=== PATIENT | male | born 1945 | race Native Hawaiian/Other Pacific Islander ===

== ENCOUNTER 2016-09-08 12:36 | Outpatient (CLI) | payer OTHER, MEDICARE ==
[~2016-09-08 12:36] MED LIST: AMIT25TA22 PO; CORGARD40 MG PO; FURO20TA67 PO; INVOKANA300 MG OR; LACTSYP31 PO; LISI20TA11 PO; METF100038 OR; OMEPRAZOLE20 M2 OR; SPIRONOLACT25 MG PO
[2016-09-08 13:27] LABS: PLATELET COUNT 120 K/uL (142-355)
[2016-09-08 13:31] LABS: POTASSIUM 3.9 mmol/L (3.6-5.2)
== END 2016-09-08 19:32 | disposition home or self-care (01) ==
LOC: LABW 12:36
DX: I85.00 Esophageal varices without bleeding (principal)
CPT/HCPCS: 36415; 80053; 82140; 85027; 85610

== ENCOUNTER 2016-09-23 12:41 | Outpatient (CLI) | payer OTHER, MEDICARE ==
[2016-09-23 13:02] LABS: POTASSIUM 4.4 mmol/L (3.6-5.2)
== END 2016-09-23 22:06 | disposition home or self-care (01) ==
LOC: LABW 12:41
PROVIDERS: Internal Medicine Gastroenterology
DX: K70.30 Alcoholic cirrhosis of liver without ascites (principal)
CPT/HCPCS: 36415; 80048

== ENCOUNTER 2016-09-30 10:03 | Outpatient (CLI) | payer OTHER, MEDICARE ==
[2016-09-30 10:33] LABS: PLATELET COUNT 94 K/uL (142-355)
[2016-09-30 12:21] LABS: POTASSIUM 4.1 mmol/L (3.6-5.2)
== END 2016-09-30 19:02 | disposition home or self-care (01) ==
LOC: LABW 10:03
PROVIDERS: Internal Medicine
DX: K74.69 Other cirrhosis of liver (principal); I10 Essential (primary) hypertension; E78.4 Other hyperlipidemia; E55.9 Vitamin D deficiency, unspecified; E11.9 Type 2 diabetes mellitus without complications; R79.89 Other specified abnormal findings of blood chemistry
CPT/HCPCS: 36415; 80053; 80061; 82043; 82570; 82607; 82652; 82728; 82746; 83036; 83540; 83550; 83970; 84100; 84403; 84443; 85027

== ENCOUNTER 2016-12-13 15:14 | Outpatient (CLI) | payer OTHER, MEDICARE ==
[2016-12-13 15:31] LABS: PLATELET COUNT 78 K/uL (142-355)
[2016-12-13 15:44] LABS: POTASSIUM 4.9 mmol/L (3.6-5.2)
== END 2016-12-13 19:32 | disposition home or self-care (01) ==
LOC: LABW 15:14
PROVIDERS: Internal Medicine Gastroenterology
DX: K70.30 Alcoholic cirrhosis of liver without ascites (principal)
CPT/HCPCS: 36415; 80053; 85027; 85610

== ENCOUNTER 2016-12-22 11:32 | Outpatient (CLI) | payer OTHER, MEDICARE ==
[2016-12-22 11:58] LABS: PLATELET COUNT 65 K/uL (142-355)
[2016-12-22 12:48] LABS: POTASSIUM 4.4 mmol/L (3.6-5.2)
== END 2016-12-22 19:15 | disposition home or self-care (01) ==
LOC: LABW 11:32
PROVIDERS: Internal Medicine Hematology & Oncology
DX: K74.60 Unspecified cirrhosis of liver (principal)
CPT/HCPCS: 36415; 80053; 82105; 82728; 83540; 83550; 85027

== ENCOUNTER 2017-10-14 12:08 | Outpatient (CLI) | payer OTHER, MEDICARE ==
[2017-10-14 13:35] LABS: PLATELET COUNT 131 K/uL (142-355)
== END 2017-10-14 21:59 | disposition home or self-care (01) ==
LOC: LABW 12:08
PROVIDERS: Internal Medicine Hematology & Oncology
DX: E86.0 Dehydration (principal); C01 Malignant neoplasm of base of tongue
CPT/HCPCS: 36415; 85027

== ENCOUNTER 2017-12-08 10:01 | Outpatient (CLI) | payer OTHER, MEDICARE ==
[2017-12-08 10:25] LABS: PLATELET COUNT 98 K/uL (142-355)
[2017-12-08 11:28] LABS: POTASSIUM 4.6 mmol/L (3.6-5.2)
== END 2017-12-08 22:05 | disposition home or self-care (01) ==
LOC: LABW 10:01
PROVIDERS: Internal Medicine
DX: E11.9 Type 2 diabetes mellitus without complications (principal); E29.1 Testicular hypofunction; I10 Essential (primary) hypertension; K70.30 Alcoholic cirrhosis of liver without ascites; Z12.5 Encounter for screening for malignant neoplasm of prostate; D64.89 Other specified anemias
CPT/HCPCS: 36415; 80053; 80061; 82043; 82140; 82306; 82570; 82607; 82728; 83036; 83540; 83550; 84154; 84403; 84443; 85027; 85044; 85610

== ENCOUNTER 2017-12-23 09:43 | Outpatient (CLI) | payer OTHER, MEDICARE ==
[2017-12-23 10:43] LABS: PLATELET COUNT 73 K/uL (142-355)
[2017-12-23 10:52] LABS: POTASSIUM 5.2 mmol/L (3.6-5.2)
== END 2017-12-23 22:14 | disposition home or self-care (01) ==
LOC: LABW 09:43
PROVIDERS: Internal Medicine Gastroenterology
DX: K70.31 Alcoholic cirrhosis of liver with ascites (principal); Z51.81 Encounter for therapeutic drug level monitoring
CPT/HCPCS: 36415; 80053; 82105; 85027; 85610

== ENCOUNTER 2017-12-28 11:50 | Outpatient (CLI) | payer OTHER, MEDICARE | END 2017-12-28 21:30 | disposition home or self-care (01) | LOC: LAB 11:50 | DX: D50.0 Iron deficiency anemia secondary to blood loss (chronic) (principal) | CPT/HCPCS: 82272 ==

== ENCOUNTER 2018-01-31 14:53 | Outpatient (CLI) | payer OTHER, MEDICARE ==
[2018-01-31 15:24] LABS: POTASSIUM 4.8 mmol/L (3.6-5.2)
[2018-01-31 15:36] LABS: PLATELET COUNT 69 K/uL (142-355)
== END 2018-01-31 22:51 | disposition home or self-care (01) ==
LOC: LABW 14:53
PROVIDERS: Internal Medicine Hematology & Oncology
DX: C01 Malignant neoplasm of base of tongue (principal)
CPT/HCPCS: 36415; 80053; 85027

== ENCOUNTER 2018-03-02 12:28 | Outpatient (CLI) | payer OTHER, MEDICARE | END 2018-03-02 21:21 | disposition home or self-care (01) | LOC: LABW 12:28 | DX: E03.8 Other specified hypothyroidism (principal) | CPT/HCPCS: 36415; 84443 ==

== ENCOUNTER 2018-03-07 14:21 | Outpatient (CLI) | payer OTHER, MEDICARE ==
[2018-03-07 14:51] LABS: PLATELET COUNT 82 K/uL (142-355)
[2018-03-07 15:03] LABS: POTASSIUM 5.4 mmol/L (3.6-5.2)
== END 2018-03-07 23:51 | disposition home or self-care (01) ==
LOC: LABW 14:21
PROVIDERS: Internal Medicine
DX: E11.9 Type 2 diabetes mellitus without complications (principal); E29.1 Testicular hypofunction; I10 Essential (primary) hypertension; K70.30 Alcoholic cirrhosis of liver without ascites; D75.89 Other specified diseases of blood and blood-forming organs; E53.8 Deficiency of other specified B group vitamins
CPT/HCPCS: 36415; 80053; 82043; 82570; 82607; 82746; 84402; 84403; 85027; 85610

== ENCOUNTER 2018-04-17 14:33 | Outpatient (CLI) | payer OTHER, MEDICARE ==
[2018-04-17 15:22] LABS: PLATELET COUNT 63 K/uL (142-355)
== END 2018-04-17 20:53 | disposition home or self-care (01) ==
LOC: LABW 14:33
PROVIDERS: Internal Medicine
DX: K74.69 Other cirrhosis of liver (principal); D64.9 Anemia, unspecified; E29.1 Testicular hypofunction; E03.9 Hypothyroidism, unspecified; I10 Essential (primary) hypertension; E11.9 Type 2 diabetes mellitus without complications
CPT/HCPCS: 36415; 82140; 83036; 83970; 84153; 84443; 85027

== ENCOUNTER 2018-06-19 10:52 | Outpatient (CLI) | payer OTHER, MEDICARE ==
[2018-06-19 11:15] LABS: PLATELET COUNT 86 K/uL (142-355)
== END 2018-06-19 20:00 | disposition home or self-care (01) ==
LOC: LABW 10:52
PROVIDERS: Internal Medicine
DX: D64.9 Anemia, unspecified (principal); D61.818 Other pancytopenia
CPT/HCPCS: 36415; 85027

== ENCOUNTER 2018-06-28 13:27 | Outpatient (CLI) | payer OTHER, MEDICARE ==
[2018-06-28 13:40] LABS: PLATELET COUNT 88 K/uL (142-355)
== END 2018-06-28 20:34 | disposition home or self-care (01) ==
LOC: LABW 13:27
PROVIDERS: Internal Medicine
DX: D64.9 Anemia, unspecified (principal); D61.818 Other pancytopenia
CPT/HCPCS: 36415; 85027

== ENCOUNTER 2018-07-10 11:28 | Outpatient (CLI) | payer OTHER, MEDICARE ==
[2018-07-10 12:17] LABS: PLATELET COUNT 81 K/uL (142-355)
== END 2018-07-10 19:48 | disposition home or self-care (01) ==
LOC: LABW 11:28
PROVIDERS: Internal Medicine
DX: D64.9 Anemia, unspecified (principal); D61.818 Other pancytopenia
CPT/HCPCS: 36415; 85027

== ENCOUNTER 2018-07-18 11:21 | Outpatient (CLI) | payer OTHER, MEDICARE ==
[2018-07-18 11:57] LABS: PLATELET COUNT 90 K/uL (142-355)
== END 2018-07-18 21:06 | disposition home or self-care (01) ==
LOC: LABW 11:21
PROVIDERS: Internal Medicine
DX: D64.9 Anemia, unspecified (principal); D61.818 Other pancytopenia
CPT/HCPCS: 36415; 85027

== ENCOUNTER 2018-07-31 11:46 | Outpatient (CLI) | payer OTHER, MEDICARE ==
[2018-07-31 12:02] LABS: PLATELET COUNT 106 K/uL (142-355)
== END 2018-07-31 22:49 | disposition home or self-care (01) ==
LOC: LABW 11:46
PROVIDERS: Internal Medicine
DX: D64.9 Anemia, unspecified (principal); D61.818 Other pancytopenia
CPT/HCPCS: 36415; 85027

== ENCOUNTER 2018-08-07 10:40 | Outpatient (CLI) | payer OTHER, MEDICARE ==
[2018-08-07 11:03] LABS: PLATELET COUNT 84 K/uL (142-355)
== END 2018-08-07 19:09 | disposition home or self-care (01) ==
LOC: LABW 10:40
PROVIDERS: Internal Medicine
DX: D64.9 Anemia, unspecified (principal); D61.818 Other pancytopenia
CPT/HCPCS: 36415; 85027

== ENCOUNTER 2018-08-23 11:46 | Outpatient (CLI) | payer OTHER, MEDICARE ==
[2018-08-23 12:43] LABS: PLATELET COUNT 74 K/uL (142-355)
[2018-08-23 13:18] LABS: POTASSIUM 4.7 mmol/L (3.6-5.2)
== END 2018-08-23 21:35 | disposition home or self-care (01) ==
LOC: LABW 11:46
PROVIDERS: Internal Medicine
DX: E03.8 Other specified hypothyroidism (principal); Z79.899 Other long term (current) drug therapy; D64.9 Anemia, unspecified; D61.818 Other pancytopenia
CPT/HCPCS: 36415; 80053; 84439; 84443; 85027

== ENCOUNTER 2018-08-30 11:13 | Outpatient (CLI) | payer OTHER, MEDICARE ==
[2018-08-30 12:40] LABS: PLATELET COUNT 95 K/uL (142-355)
== END 2018-08-30 22:10 | disposition home or self-care (01) ==
LOC: LABW 11:13
PROVIDERS: Internal Medicine
DX: D64.9 Anemia, unspecified (principal); D61.818 Other pancytopenia; R73.9 Hyperglycemia, unspecified
CPT/HCPCS: 36415; 83036; 85027

== ENCOUNTER 2018-09-06 13:13 | Outpatient (CLI) | payer OTHER, MEDICARE ==
[2018-09-06 13:30] LABS: PLATELET COUNT 83 K/uL (142-355)
== END 2018-09-06 19:36 | disposition home or self-care (01) ==
LOC: LABW 13:13
PROVIDERS: Internal Medicine
DX: D64.9 Anemia, unspecified (principal); D61.818 Other pancytopenia
CPT/HCPCS: 36415; 85027

== ENCOUNTER 2018-09-12 13:04 | Outpatient (CLI) | payer OTHER, MEDICARE ==
[2018-09-12 13:57] LABS: PLATELET COUNT 88 K/uL (142-355)
== END 2018-09-12 21:12 | disposition home or self-care (01) ==
LOC: LABW 13:04
DX: D61.818 Other pancytopenia (principal); E53.8 Deficiency of other specified B group vitamins; D64.9 Anemia, unspecified
CPT/HCPCS: 36415; 82607; 82728; 82746; 83540; 83550; 85027

== ENCOUNTER 2018-10-02 12:59 | Outpatient (CLI) | payer OTHER, MEDICARE ==
[2018-10-02 13:39] LABS: PLATELET COUNT 94 K/uL (142-355)
== END 2018-10-02 19:47 | disposition home or self-care (01) ==
LOC: LABW 12:59
PROVIDERS: Internal Medicine
DX: E29.1 Testicular hypofunction (principal); Z79.899 Other long term (current) drug therapy; D64.9 Anemia, unspecified; D61.818 Other pancytopenia
CPT/HCPCS: 36415; 84402; 84403; 85027

== ENCOUNTER 2018-10-09 12:28 | Outpatient (CLI) | payer OTHER, MEDICARE ==
[2018-10-09 12:39] LABS: PLATELET COUNT 81 K/uL (142-355)
== END 2018-10-09 20:02 | disposition home or self-care (01) ==
LOC: LABW 12:28
PROVIDERS: Internal Medicine
DX: D64.9 Anemia, unspecified (principal); D61.818 Other pancytopenia
CPT/HCPCS: 36415; 85027

== ENCOUNTER 2018-10-16 13:33 | Outpatient (CLI) | payer OTHER, MEDICARE ==
[2018-10-16 13:48] LABS: PLATELET COUNT 91 K/uL (142-355)
== END 2018-10-16 20:05 | disposition home or self-care (01) ==
LOC: LABW 13:33
DX: D64.9 Anemia, unspecified (principal); D61.818 Other pancytopenia
CPT/HCPCS: 36415; 82728; 83540; 83550; 85027

== ENCOUNTER 2018-10-23 13:01 | Outpatient (CLI) | payer OTHER, MEDICARE ==
[2018-10-23 13:23] LABS: PLATELET COUNT 89 K/uL (142-355)
== END 2018-10-23 22:12 | disposition home or self-care (01) ==
LOC: LABW 13:01
PROVIDERS: Internal Medicine
DX: D64.9 Anemia, unspecified (principal); D61.818 Other pancytopenia
CPT/HCPCS: 36415; 85027

== ENCOUNTER 2018-10-26 10:09 | Outpatient (CLI) | payer OTHER, MEDICARE | END 2018-10-26 19:54 | disposition home or self-care (01) | LOC: US 10:09 | DX: I12.9 Hypertensive chronic kidney disease with stage 1 through stage 4 chronic kidney disease, or unspecified chronic kidney disease (principal); D63.1 Anemia in chronic kidney disease; E03.9 Hypothyroidism, unspecified; K74.60 Unspecified cirrhosis of liver; G25.81 Restless legs syndrome; E29.9 Testicular dysfunction, unspecified; E11.22 Type 2 diabetes mellitus with diabetic chronic kidney disease; N18.4 Chronic kidney disease, stage 4 (severe) ==

== ENCOUNTER 2018-11-01 10:44 | Outpatient (CLI) | payer OTHER, MEDICARE ==
[2018-11-01 11:02] LABS: PLATELET COUNT 60 K/uL (142-355)
== END 2018-11-01 19:11 | disposition home or self-care (01) ==
LOC: LABW 10:44
PROVIDERS: Internal Medicine
DX: D64.9 Anemia, unspecified (principal); D61.818 Other pancytopenia; I65.29 Occlusion and stenosis of unspecified carotid artery
CPT/HCPCS: 36415; 80061; 85027

== ENCOUNTER 2018-11-08 12:24 | Outpatient (CLI) | payer OTHER, MEDICARE ==
[2018-11-08 12:45] LABS: PLATELET COUNT 65 K/uL (142-355)
== END 2018-11-08 23:12 | disposition home or self-care (01) ==
LOC: LABW 12:24
PROVIDERS: Internal Medicine
DX: D64.9 Anemia, unspecified (principal); D61.818 Other pancytopenia
CPT/HCPCS: 36415; 85027

== ENCOUNTER 2018-11-14 12:35 | Outpatient (CLI) | payer OTHER, MEDICARE ==
[2018-11-14 12:43] LABS: PLATELET COUNT 67 K/uL (142-355)
== END 2018-11-14 21:09 | disposition home or self-care (01) ==
LOC: LABW 12:35
PROVIDERS: Internal Medicine
DX: D64.9 Anemia, unspecified (principal); D61.818 Other pancytopenia
CPT/HCPCS: 36415; 85027

== ENCOUNTER 2018-11-21 12:19 | Outpatient (CLI) | payer OTHER, MEDICARE ==
[2018-11-21 12:49] LABS: PLATELET COUNT 72 K/uL (142-355)
== END 2018-11-21 21:08 | disposition home or self-care (01) ==
LOC: LABW 12:19
PROVIDERS: Internal Medicine
DX: D64.9 Anemia, unspecified (principal); D61.818 Other pancytopenia
CPT/HCPCS: 36415; 85027

== ENCOUNTER 2018-11-28 12:21 | Outpatient (CLI) | payer OTHER, MEDICARE ==
[2018-11-28 13:14] LABS: PLATELET COUNT 96 K/uL (142-355)
== END 2018-11-28 23:43 | disposition home or self-care (01) ==
LOC: LABW 12:21
PROVIDERS: Internal Medicine
DX: D64.89 Other specified anemias (principal); D61.818 Other pancytopenia
CPT/HCPCS: 36415; 85027

== ENCOUNTER 2018-12-05 11:47 | Outpatient (CLI) | payer OTHER, MEDICARE ==
[2018-12-05 12:02] LABS: PLATELET COUNT 91 K/uL (142-355)
== END 2018-12-05 22:48 | disposition home or self-care (01) ==
LOC: LABW 11:47
PROVIDERS: Internal Medicine
DX: D64.89 Other specified anemias (principal); D61.818 Other pancytopenia
CPT/HCPCS: 36415; 85027

== ENCOUNTER 2018-12-12 12:13 | Outpatient (CLI) | payer OTHER, MEDICARE ==
[2018-12-12 12:37] LABS: PLATELET COUNT 80 K/uL (142-355)
== END 2018-12-12 20:22 | disposition home or self-care (01) ==
LOC: LABW 12:13
PROVIDERS: Internal Medicine
DX: D64.89 Other specified anemias (principal); D61.818 Other pancytopenia
CPT/HCPCS: 36415; 85027

== ENCOUNTER 2018-12-18 12:00 | Outpatient (CLI) | payer OTHER, MEDICARE ==
[2018-12-18 12:12] LABS: PLATELET COUNT 90 K/uL (142-355)
== END 2018-12-18 19:29 | disposition home or self-care (01) ==
LOC: LABW 12:00
PROVIDERS: Internal Medicine
DX: D64.89 Other specified anemias (principal); D61.818 Other pancytopenia
CPT/HCPCS: 36415; 85027

== ENCOUNTER 2019-01-01 11:34 | Outpatient (CLI) | payer OTHER, MEDICARE ==
[2019-01-01 11:50] LABS: PLATELET COUNT 111 K/uL (142-355)
== END 2019-01-01 22:47 | disposition home or self-care (01) ==
LOC: LABW 11:34
PROVIDERS: Internal Medicine
DX: D64.89 Other specified anemias (principal); D61.818 Other pancytopenia; E03.8 Other specified hypothyroidism
CPT/HCPCS: 36415; 84439; 84443; 85027

== ENCOUNTER 2019-01-09 10:04 | Outpatient (CLI) | payer OTHER, MEDICARE ==
[2019-01-09 10:19] LABS: PLATELET COUNT 90 K/uL (142-355)
[2019-01-09 10:35] LABS: POTASSIUM 4.5 mmol/L (3.6-5.2)
== END 2019-01-09 19:20 | disposition home or self-care (01) ==
LOC: LABW 10:04
PROVIDERS: Internal Medicine Gastroenterology
DX: D61.818 Other pancytopenia (principal); K70.31 Alcoholic cirrhosis of liver with ascites
CPT/HCPCS: 36415; 80053; 82105; 85027; 85610

== ENCOUNTER 2019-01-16 11:07 | Outpatient (CLI) | payer OTHER, MEDICARE ==
[2019-01-16 11:34] LABS: PLATELET COUNT 76 K/uL (142-355)
== END 2019-01-16 20:31 | disposition home or self-care (01) ==
LOC: LABW 11:07
DX: D50.8 Other iron deficiency anemias (principal); D61.818 Other pancytopenia
CPT/HCPCS: 36415; 82728; 83540; 83550; 85027

== ENCOUNTER 2019-01-30 11:45 | Outpatient (CLI) | payer OTHER, MEDICARE ==
[2019-01-30 12:07] LABS: PLATELET COUNT 82 K/uL (142-355)
== END 2019-01-30 23:03 | disposition home or self-care (01) ==
LOC: LABW 11:45
PROVIDERS: Internal Medicine
DX: D64.89 Other specified anemias (principal); D61.818 Other pancytopenia
CPT/HCPCS: 36415; 85027

== ENCOUNTER 2019-02-13 12:31 | Outpatient (CLI) | payer OTHER, MEDICARE ==
[2019-02-13 12:51] LABS: PLATELET COUNT 100 K/uL (142-355)
== END 2019-02-13 19:48 | disposition home or self-care (01) ==
LOC: LABW 12:31
PROVIDERS: Internal Medicine
DX: D64.89 Other specified anemias (principal); D61.818 Other pancytopenia
CPT/HCPCS: 36415; 85027

== ENCOUNTER 2019-02-27 13:38 | Outpatient (CLI) | payer OTHER, MEDICARE ==
[2019-02-27 13:48] LABS: PLATELET COUNT 77 K/uL (142-355)
== END 2019-02-27 20:03 | disposition home or self-care (01) ==
LOC: LABW 13:38
PROVIDERS: Internal Medicine
DX: D64.89 Other specified anemias (principal); D61.818 Other pancytopenia
CPT/HCPCS: 36415; 85027

== ENCOUNTER 2019-03-06 10:53 | Outpatient (CLI) | payer OTHER, MEDICARE ==
[2019-03-06 11:08] LABS: PLATELET COUNT 66 K/uL (142-355)
== END 2019-03-06 23:26 | disposition home or self-care (01) ==
LOC: LABW 10:53
PROVIDERS: Internal Medicine Gastroenterology
DX: K70.31 Alcoholic cirrhosis of liver with ascites (principal); D64.89 Other specified anemias; D61.818 Other pancytopenia
CPT/HCPCS: 36415; 82105; 85027

== ENCOUNTER 2019-03-20 11:39 | Outpatient (CLI) | payer OTHER, MEDICARE ==
[2019-03-20 12:12] LABS: PLATELET COUNT 89 K/uL (142-355)
== END 2019-03-20 23:45 | disposition home or self-care (01) ==
LOC: LABW 11:39
PROVIDERS: Internal Medicine
DX: E29.1 Testicular hypofunction (principal); E03.8 Other specified hypothyroidism; D64.89 Other specified anemias; D61.818 Other pancytopenia
CPT/HCPCS: 36415; 84402; 84403; 84439; 84443; 85027

== ENCOUNTER 2019-04-03 11:34 | Outpatient (CLI) | payer OTHER, MEDICARE ==
[2019-04-03 11:57] LABS: PLATELET COUNT 87 K/uL (142-355)
[2019-04-03 12:21] LABS: POTASSIUM 4.9 mmol/L (3.6-5.2)
== END 2019-04-03 21:15 | disposition home or self-care (01) ==
LOC: LABW 11:34
PROVIDERS: Internal Medicine
DX: I12.9 Hypertensive chronic kidney disease with stage 1 through stage 4 chronic kidney disease, or unspecified chronic kidney disease (principal); N18.3 Chronic kidney disease, stage 3 (moderate); E03.8 Other specified hypothyroidism; K74.69 Other cirrhosis of liver; E55.9 Vitamin D deficiency, unspecified; E11.9 Type 2 diabetes mellitus without complications; Z51.81 Encounter for therapeutic drug level monitoring; Z12.5 Encounter for screening for malignant neoplasm of prostate
CPT/HCPCS: 36415; 80053; 80061; 82306; 83036; 83970; 84100; 84153; 84403; 85027; 85610

== ENCOUNTER 2019-04-19 13:48 | Outpatient (CLI) | payer OTHER, MEDICARE ==
[2019-04-19 14:30] LABS: PLATELET COUNT 88 K/uL (142-355)
== END 2019-04-19 22:37 | disposition home or self-care (01) ==
LOC: LABW 13:48
PROVIDERS: Internal Medicine
DX: D64.89 Other specified anemias (principal); D61.818 Other pancytopenia
CPT/HCPCS: 36415; 85027

== ENCOUNTER 2019-05-01 13:11 | Outpatient (CLI) | payer OTHER, MEDICARE ==
[2019-05-01 13:24] LABS: PLATELET COUNT 90 K/uL (142-355)
== END 2019-05-01 20:19 | disposition home or self-care (01) ==
LOC: LABW 13:11
PROVIDERS: Internal Medicine
DX: D64.89 Other specified anemias (principal); D61.818 Other pancytopenia
CPT/HCPCS: 36415; 85027

== ENCOUNTER 2019-05-29 10:13 | Outpatient (CLI) | payer OTHER, MEDICARE ==
[2019-05-29 10:45] LABS: PLATELET COUNT 65 K/uL (142-355)
== END 2019-05-29 20:11 | disposition home or self-care (01) ==
LOC: LABW 10:13
DX: D61.818 Other pancytopenia (principal); D50.8 Other iron deficiency anemias; C02.9 Malignant neoplasm of tongue, unspecified
CPT/HCPCS: 36415; 82728; 83540; 83550; 85027

== ENCOUNTER 2019-06-22 12:11 | Outpatient (CLI) | payer OTHER, MEDICARE ==
[2019-06-22 12:49] LABS: POTASSIUM 4.4 mmol/L (3.6-5.2)
[2019-06-22 13:10] LABS: PLATELET COUNT 125 K/uL (142-355)
== END 2019-06-22 22:36 | disposition home or self-care (01) ==
LOC: LABW 12:11
DX: K70.31 Alcoholic cirrhosis of liver with ascites (principal); D61.818 Other pancytopenia; D50.8 Other iron deficiency anemias
CPT/HCPCS: 36415; 80053; 85007; 85027; 85610

== ENCOUNTER 2019-07-09 11:50 | Outpatient (CLI) | payer OTHER, MEDICARE ==
[2019-07-09 12:02] LABS: PLATELET COUNT 65 K/uL (142-355)
== END 2019-07-09 21:09 | disposition home or self-care (01) ==
LOC: LABW 11:50
DX: D50.8 Other iron deficiency anemias (principal); D61.818 Other pancytopenia
CPT/HCPCS: 36415; 85027

== ENCOUNTER 2019-07-23 11:40 | Outpatient (CLI) | payer OTHER, MEDICARE ==
[2019-07-23 12:02] LABS: PLATELET COUNT 69 K/uL (142-355)
[2019-07-23 16:07] LABS: POTASSIUM 4.4 mmol/L (3.6-5.2)
== END 2019-07-23 20:49 | disposition home or self-care (01) ==
LOC: LABW 11:40
PROVIDERS: Internal Medicine
DX: K74.69 Other cirrhosis of liver (principal); D64.89 Other specified anemias; E29.1 Testicular hypofunction; E03.8 Other specified hypothyroidism; I10 Essential (primary) hypertension; E11.9 Type 2 diabetes mellitus without complications; N40.0 Benign prostatic hyperplasia without lower urinary tract symptoms; E55.9 Vitamin D deficiency, unspecified
CPT/HCPCS: 36415; 80053; 81000; 82306; 82607; 82728; 83540; 84153; 84403; 84443; 85027

== ENCOUNTER 2019-08-13 10:34 | Outpatient (CLI) | payer OTHER, MEDICARE ==
[2019-08-13 10:50] LABS: PLATELET COUNT 72 K/uL (142-355)
== END 2019-08-13 20:14 | disposition home or self-care (01) ==
LOC: MRI 10:34
PROVIDERS: Internal Medicine
DX: C02.9 Malignant neoplasm of tongue, unspecified (principal); D61.818 Other pancytopenia; D50.8 Other iron deficiency anemias; L03.818 Cellulitis of other sites
CPT/HCPCS: 36415; 85027

== ENCOUNTER 2019-08-27 14:00 | Outpatient (CLI) | payer OTHER, MEDICARE ==
[2019-08-27 14:15] LABS: PLATELET COUNT 82 K/uL (142-355)
== END 2019-08-27 22:36 | disposition home or self-care (01) ==
LOC: LABW 14:00
DX: C02.9 Malignant neoplasm of tongue, unspecified (principal); D61.818 Other pancytopenia; D50.8 Other iron deficiency anemias
CPT/HCPCS: 36415; 85007; 85027

== ENCOUNTER 2019-09-24 11:54 | Outpatient (CLI) | payer OTHER, MEDICARE ==
[2019-09-24 12:11] LABS: PLATELET COUNT 77 K/uL (142-355)
== END 2019-09-24 19:15 | disposition home or self-care (01) ==
LOC: LABW 11:54
DX: C02.9 Malignant neoplasm of tongue, unspecified (principal); D61.818 Other pancytopenia; D50.8 Other iron deficiency anemias
CPT/HCPCS: 36415; 85007; 85027

== ENCOUNTER 2019-10-08 12:15 | Outpatient (CLI) | payer OTHER, MEDICARE ==
[2019-10-08 12:25] LABS: PLATELET COUNT 76 K/uL (142-355)
== END 2019-10-08 21:36 | disposition home or self-care (01) ==
LOC: LABW 12:15
DX: C02.9 Malignant neoplasm of tongue, unspecified (principal); D61.818 Other pancytopenia; D50.8 Other iron deficiency anemias
CPT/HCPCS: 36415; 85027

== ENCOUNTER 2019-10-22 11:28 | Outpatient (CLI) | payer OTHER, MEDICARE ==
[2019-10-22 11:45] LABS: PLATELET COUNT 89 K/uL (142-355)
== END 2019-10-22 19:15 | disposition home or self-care (01) ==
LOC: LABW 11:28
DX: C02.9 Malignant neoplasm of tongue, unspecified (principal); D61.818 Other pancytopenia; D50.8 Other iron deficiency anemias
CPT/HCPCS: 36415; 85007; 85027

== ENCOUNTER 2019-10-29 13:00 | Outpatient (CLI) | payer OTHER, MEDICARE | END 2019-10-29 19:24 | disposition home or self-care (01) | LOC: LABW 13:00 | DX: C02.9 Malignant neoplasm of tongue, unspecified (principal); D61.818 Other pancytopenia; D50.8 Other iron deficiency anemias | CPT/HCPCS: 36415; 82728; 83540; 83550 ==

== ENCOUNTER 2019-11-05 08:46 | Outpatient (CLI) | payer OTHER, MEDICARE | END 2019-11-05 22:46 | disposition home or self-care (01) | LOC: US 08:46 | DX: K70.31 Alcoholic cirrhosis of liver with ascites (principal) ==

== ENCOUNTER 2019-11-13 15:30 | Outpatient (CLI) | payer OTHER, MEDICARE ==
[2019-11-13 15:59] LABS: PLATELET COUNT 82 K/uL (142-355)
== END 2019-11-13 20:39 | disposition home or self-care (01) ==
LOC: LABW 15:30
DX: C02.9 Malignant neoplasm of tongue, unspecified (principal); D61.818 Other pancytopenia; D50.8 Other iron deficiency anemias
CPT/HCPCS: 36415; 85027

== ENCOUNTER 2019-12-11 11:07 | Outpatient (CLI) | payer OTHER, MEDICARE ==
[2019-12-11 14:00] LABS: PLATELET COUNT 83 K/uL (142-355)
[2019-12-11 14:06] LABS: POTASSIUM 4.2 mmol/L (3.6-5.2)
== END 2019-12-11 22:33 | disposition home or self-care (01) ==
LOC: LABW 11:07
PROVIDERS: Internal Medicine Gastroenterology
DX: K70.31 Alcoholic cirrhosis of liver with ascites (principal)
CPT/HCPCS: 36415; 80053; 82105; 85027; 85610

== ENCOUNTER 2023-04-18 11:36 | Outpatient (CLI) | payer OTHER, MEDICARE ==
[2023-04-18 12:17] LABS: PLATELET COUNT 67 K/uL (142-355)
[2023-04-18 13:00] LABS: POTASSIUM 4.4 mmol/L (3.6-5.2)
== END 2023-04-18 23:20 | disposition home or self-care (01) ==
LOC: LAB 11:36
PROVIDERS: ATTEND Internal Medicine
DX: K74.60 Unspecified cirrhosis of liver (principal); E11.9 Type 2 diabetes mellitus without complications; E03.8 Other specified hypothyroidism; E29.1 Testicular hypofunction; N18.9 Chronic kidney disease, unspecified; I12.9 Hypertensive chronic kidney disease with stage 1 through stage 4 chronic kidney disease, or unspecified chronic kidney disease
CPT/HCPCS: 80053; 80061; 81002; 82140; 83036; 83735; 84100; 84403; 84439; 84443; 85027; 85610

== ENCOUNTER 2023-09-20 15:20 | Outpatient (CLI) | payer OTHER, MEDICARE | END 2023-09-20 19:31 | disposition home or self-care (01) | LOC: RAD 15:20 | PROVIDERS: ATTEND Internal Medicine | DX: J40 Bronchitis, not specified as acute or chronic (principal) ==